=== PATIENT | male | born 1955 | race Caucasian/White ===

== ENCOUNTER 2018-05-30 11:31 | Emergency (ER) | payer MEDICARE ==
[~2018-05-30] VITALS: Ht 167.6 cm; Wt 54.0 kg
[2018-05-30 12:15] VITALS: BP 136/81
[2018-05-30 12:29] LABS: MEAN CORPUSCULAR HEMOGLOBIN 37.5 pg (27.5-34.5); MEAN CORPUSCULAR HGB CONC 33.9 g/dL (33.2-36.2); MEAN CORPUSCULAR VOLUME 110.5 fL (81-97); MEAN PLATELET VOLUME 7.7 fL (7.4-10.4); PLATELET COUNT 225 x10^3/uL (130-400); RED BLOOD COUNT 3.85 x10^6/uL (4.38-5.82); RED CELL DISTRIBUTION WIDTH 14.7 % (9.4-14.8)
[2018-05-30 12:40] LABS: INTERNATIONAL NORMALIZED RATIO 0.94 (0.93-1.1); PROTHROMBIN TIME 9.8 Seconds (9.6-11.5)
[2018-05-30 12:41] LABS: ALANINE AMINOTRANSFERASE 32 U/L (12-78); ALBUMIN 3.7 g/dL (3.4-5.0); ANION GAP 11 mmol/L (5-15); CALCIUM 9.5 mg/dL (8.5-10.1); CHLORIDE 104 mmol/L (98-107); CREATININE 0.81 mg/dL (0.7-1.3)
[2018-05-30 12:43] LABS: ALKALINE PHOSPHATASE 64 U/L (45-117); BILIRUBIN,TOTAL 1.5 mg/dL (0.2-1.0); TOTAL PROTEIN 7.8 g/dL (6.4-8.2)
[2018-05-30 12:44] LABS: BASOPHILS # (AUTO) 0.03 x10^3/uL (0-0.1); BASOPHILS % (AUTO) 0 % (0-1); EOSINOPHILS # (AUTO) 0.01 x10^3/uL (0-0.4); EOSINOPHILS % (AUTO) 0 % (1-7); LYMPHOCYTES # (AUTO) 0.94 x10^3/uL (1-3.4); LYMPHOCYTES % (AUTO) 9 % (22-44); MD MORPH REVIEW ONLY; MONOCYTES # (AUTO) 0.54 x10^3/uL (0.2-0.8); MONOCYTES % (AUTO) 5 % (2-9); NEUTROPHILS # (AUTO) 9.07 x10^3/uL (1.8-6.8); NEUTROPHILS % (AUTO) 86 % (42-75)
[2018-05-30 12:45] LABS: <PLATELET ESTIMATE> ADEQUATE; <PLT MORPHOLOGY> NORMAL PLT MORPH
== END 2018-05-30 14:20 | disposition home or self-care (01) ==
LOC: ED 14:00
DX: S20.212A Contusion of left front wall of thorax, initial encounter (principal); S70.02XA Contusion of left hip, initial encounter; F32.9 Major depressive disorder, single episode, unspecified; F03.90 Unspecified dementia, unspecified severity, without behavioral disturbance, psychotic disturbance, mood disturbance, and anxiety; W10.9XXA Fall (on) (from) unspecified stairs and steps, initial encounter; Y93.89 Activity, other specified; Y99.8 Other external cause status; Y92.009 Unspecified place in unspecified non-institutional (private) residence as the place of occurrence of the external cause
CPT/HCPCS: 36415; 80053; 85025; 85610; 85730; 93005; 99285